=== PATIENT | female | born 1955 | race Caucasian/White ===

== ENCOUNTER 2016-09-04 09:59 | Observation (INO) | payer OTHER ==
[~2016-09-04] VITALS: Ht 154.9 cm; Wt 85.7 kg
[2016-09-04] MEDS ORDERED: DIOVAN HCT 31 TABLET PO (10:40)
[2016-09-04] MEDS ORDERED: FISH OIL 1,2001 EAC4 PO (10:41)
[2016-09-04] MEDS ORDERED: COREG6.25 M1 PO (10:41)
[2016-09-04 10:42] LABS: EOSINOPHIL (%) 0.3 % (0-5); HEMATOCRIT 48.5 % (36.0-46.0); IMMATURE GRANULOCYTE (%) 0.1 % (0.0-0.7); IMMATURE GRANULOCYTE COUNT 0.1 K/uL; LYMPHOCYTE COUNT 2.2 K/uL (1.0-2.8); MCH 30.1 PG (29.0-34.0); MCHC 35.7 G/DL (30.0-36.0); MCV 84.3 FL (83-99); MEAN PLAT.VOLUME 11.2 uM^3 (9.5-12.4); MONOCYTE (%) 7.9 % (3-12); MONOCYTE COUNT 0.6 K/uL (0-0.8); NEUTROPHIL COUNT 4.7 K/uL (1.8-6.4); PLATELET COUNT 323 K/uL (156-360); RBC DIS.WIDTH-CV 13.3 % (11.8-14.6); RBC DIS.WIDTH-SD 41.2 % (39-53); RED BLOOD COUNT 5.75 M/uL (3.80-5.20); WHITE BLOOD COUNT 7.6 K/uL (4.1-10.2)
[2016-09-04] MEDS ORDERED: PRILOSEC20 MG PO (10:43)
[2016-09-04] MEDS ORDERED: WOMEN'S DAILY1 EAC2 PO (10:44)
[2016-09-04] MEDS ORDERED: VITAMIN D31000 UNI2 PO (10:45)
[2016-09-04 10:50] LABS: CHLORIDE 107 mEq/L (99-109); POTASSIUM 2.6 mEq/L (3.7-5.4); SODIUM 142 mEq/L (136-147)
[2016-09-04 10:51] LABS: GLUCOSE 130 mg/dL (70-99)
[2016-09-04 10:52] LABS: INTER. NORMALIZED RATIO 1.1; PROTHROMBIN TIME 11.3 (9.2-11.2)
[2016-09-04 10:53] LABS: ANION GAP 20 MEQ/L (2-14)
[2016-09-04 10:55] LABS: GFR ESTIMATE (CALCULATED) 49 mL/min/
[2016-09-04 10:56] LABS: UREA NITROGEN (BUN) 32 mg/dL (9-23)
[2016-09-04 11:02] LABS: TROP-I INTERPRETATION NEGATIVE; TROPONIN-I 0.06 ng/mL (0.0-0.30)
[2016-09-04 11:42] LABS: MAGNESIUM 2.1 mg/dL (1.3-2.7)
[2016-09-04 12:03] LABS: D-DIMER ELISA 0.45 mg/L FEU (< 0.57)
[2016-09-04 12:19] LABS: INFLUENZA A VIRAL ANTIGEN NEGATIVE; INFLUENZA B VIRAL ANTIGEN NEGATIVE
[2016-09-04 12:43] LABS: TROP-I INTERPRETATION NEGATIVE; TROPONIN-I 0.07 ng/mL (0.0-0.30)
[2016-09-04 13:05] VITALS: BP 131/70
[2016-09-04 16:17] VITALS: BP 144/81
[2016-09-04 17:26] LABS: C DIFF TOXIN NEGATIVE (NEGATIVE)
[2016-09-04 17:32] LABS: PROBE CHECK PASS; SPECIMEN PROCESSING CONTROL PASS
[2016-09-04 18:24] LABS: TROP-I INTERPRETATION NEGATIVE
[2016-09-04 20:00] VITALS: BP 122/66
[2016-09-04 23:40] VITALS: BP 121/69
[2016-09-05 04:48] VITALS: BP 103/57
[2016-09-05 06:33] LABS: ANION GAP 9 MEQ/L (2-14); CHLORIDE 113 MEQ/L (99-109); HDL CHOLESTEROL 18 MG/DL (Desirable>=50); LDL CHOLESTEROL 86 mg/dL (Desirable<100); NON-HDL CHOLESTEROL 108 mg/dL (Desirable<160); SAMPLE HEMOLYSIS CHECK 0; SAMPLE ICTERIC CHECK 0; SAMPLE LIPEMIA CHECK 0; SODIUM 143 MEQ/L (136-147); TOTAL CHOLESTEROL 126 mg/dL (Desirable<200); TRIGLYCERIDES 111 MG/DL (Normal: <150); UREA NITROGEN (BUN) 22 mg/dL (9-23)
[2016-09-05 06:52] LABS: GFR ESTIMATE (CALCULATED) > 59 mL/min/; GLUCOSE 85 mg/dL (70-99)
[2016-09-05 08:00] VITALS: BP 106/50
[2016-09-05 12:04] VITALS: BP 119/66
[2016-09-05 16:13] VITALS: BP 115/63
[2016-09-05] MEDS ORDERED: FLAGYL500 MG PO (16:22)
[2016-09-05] MEDS ORDERED: CIPRO500 MG PO (16:22)
[2016-09-05] MEDS ORDERED: ACIDOPHILUS LA1 EACH PO (16:22)
== END 2016-09-05 17:13 | disposition home or self-care (01) ==
LOC: EME → EDBD 09:59 → EME 09:59 → 5WEST 11:25 → EDOF 11:25 → 5WEST 12:46
PROVIDERS: Emergency Medicine; Hospitalist
DX: N17.9 Acute kidney failure, unspecified (principal); E86.0 Dehydration; E87.6 Hypokalemia; R19.7 Diarrhea, unspecified; I10 Essential (primary) hypertension; E78.5 Hyperlipidemia, unspecified; R07.89 Other chest pain
CPT/HCPCS: 71020; 71275; 80048; 80061; 83735; 84484; 85025; 85379; 85610; 85730; 87493; 87502; 93005; 99281; 99285; G0378; J0744; J1650; J2405; J3480; J7030; S0030